=== PATIENT | female | born 1990 | race Asian ===

== ENCOUNTER 2024-06-15 11:39 | Inpatient (IN) ==
[2024-06-15] MEDS ORDERED: OXYTOCIN 30 UNITS/NSS 30 UNITS/500 ML BAG IV PRN ×2 (12:09→17:51)
[2024-06-15] MEDS ORDERED: LIDOCAINE 1% LOCAL 20 ML VIAL INFIL PRN (12:09)
[2024-06-15] MEDS ORDERED: SODIUM CHLORIDE 0.9% 50 ML IV PRN (12:15)
[2024-06-15] MEDS ORDERED: SODIUM CHLORIDE 0.9% 100 ML IV PRN (12:15)
[2024-06-15] MEDS: ACETAMINOPHEN 500 MG TAB PO PRN (12:45)
[2024-06-15] MEDS: SODIUM CHLORIDE 0.9% 1,000 ML IV SCH (12:50)
--- NOTE | 2024-06-15 12:54 | History & Physical Report ---
Date of Service June 15, 2024 Assessment & Plan (1) Previous delivery affecting : Plan: - Previous record of C section N/A. - H/O successful in 2nd . - She is explained of pros and cons of , Aniceto want to try . She is aware of possible risk like rupture of previous scar, need of emergency C- Section or emergency laparotomy. BG: B +ve GBS: Unknown status, PCN during labor Plan: Pitocin IOL per protocol explained and consent signed. Possible C section consent signed (2) Hx successful (vaginal after ), currently : Plan - As per 1. History of Present Illness Chief Complaint: Leakage of fluid since today morning. Primary Care Provider: NO PCP 33 years, , sweet lady at [id number] POG with pre labor leaking since this AM around 5 o'clock. Previous ANCs in [place], moved here few months back after joining [facility] in [facility]. P1: for prolonged labor( ? NPOL, NDOH) P2: Successful spontaneous , Induced for Obs Luna at 36-37 weeks. She was 2 cm while IOL was started then. 17-18 hours of labor post IOL per patient. Notes from previous CS/ unavailable. -Placenta migrated from low lying in anatomy scan to fundal location today. -Hx of PTL/PTD at 36 weeks Used progesterone until 17 wk, was told to stop in [place] d/t normal cervix at that time. Allergies Allergy/AdvReac Type Severity Reaction Status Date / Time No Known Allergies Allergy Verified 06/15/24 10:48 Home Medications Medication Instructions Recorded Confirmed Type calcium carbonate [Calcium 500] 1 tab PO DAILY PRN Heartburn 03/26/24 06/15/24 History ferrous sulfate PO 03/26/24 06/15/24 History folic acid PO DAILY 03/26/24 06/15/24 History Past Med/Surg History Problem List (Updated 06/15/24 @ 12:43 by Shauna Salvador MD) Hx successful (vaginal after ), currently H/O delivery, currently Previous delivery affecting Medical History delivery Chicken pox Varicella vaccination Migraines Surgical History (Updated 12/17/24 @ 12:43 by Shauna Salvador MD) S/P section Family History Denies family history of Ovarian cancer Breast cancer Colorectal cancer Social History Smoking Status: Never smoker Do You Dip or Chew Tobacco: No; Hx Alcohol Use: No Hx Substance Use: No Preferred Language: Somali Communication Ability: Effective Tar Boiler Required: No Beliefs That Will Affect Care: None marital status: marital status details: -Avinash Mcdonald 33) [phone] Current Living Situation: Family Current Living Situation Comment: Patient lives here with 2 children and in [place] currently. current occupational status: student current occupation: [employer] How many Children do You have: 2 other: Emergency contact in [email or web address]]: Cousin Feels Safe at Home: Yes Safety Concerns: Feels Safe At This Time Review of Systems Review of Systems: As per HPI Physical Exam Physical Exam: General: Alert and oriented. No acute distress CV: Regular rate and rhythm. No murmurs. Respiratory: CTA bilaterally. No rhonchi, wheezes, or crackles. No increased w ork of breathing. Abdomen: Gravid; Term size, nontender upon palpation, No scar tenderness noted Pelvic: Dilated 3 cm, 70% effaced and HS -[address] Segundo Lower extremities: No LE edema. No deep calf pain. Results & Data Results & Data Vital Signs (Past 12 Hours) Vital Signs Pulse BP 06/15/24 12:23 92 H 105/60 Supervising Physician Co-Signing Physician Notes Resident Physician Supervision Note: I interviewed and examined the patient. Discussed with Dr. Salvador and agree with findings and plan as documented in the note. Any exceptions or clarifications are listed here: 33yo @ 37 12/04, presented to L&D after clear fluid rupture of membranes at 5 this morning. Feeling mild ctx on arrival. History of for G1, reports this was a failure to progress in labor, then underwent successful . Both deliveries were in [place] - no records available. She is very motivated for vaginal delivery, and has been counseled extensively both in our office and today. She is aware of risk of uterine rupture, need for emergent , potential for further surgery including hysterectomy. Aware of risks of of baby/mother if uterine rupture. She is agreeable to section if absolutely necessary or in an emergency scenario, but otherwise if good progression of labor and reassuring maternal and status would like to attempt . I discussed with her that I think this is a reasonable plan, although I cannot completely quote accurate risk because we do not have her prior records from her section. We discussed and she signed consent and consent in case of emergency. 2u PRBC ordered for type/cross to have on standby if needed. She plans for an epidural. Will plan for pitocin for augmentation of her labor. She requested to eat during labor, I explained that this is not recommended because of breathing risks if the need for an emergency section arises. GBS swab collected today - since we will not have results prior to delivery, advised prophylaxis with penicillin - she agreed. Documented By: Sharri Segundo, Resident Activity Tracking Resident Involvement: Resident Care Provided Care Provided: OB Delivery
[2024-06-15] MEDS: PENICILLIN GK 6 MU in SODIUM CHLORIDE 0.9% 250 ML IV STA (12:55)
[2024-06-15] MEDS: OXYTOCIN 30 UNITS/NSS 30 UNITS/500 ML BAG IV PRN (13:00)
[2024-06-15 13:11] LABS: Hematocrit (blood only) 35.8 % (37.0-47.0); Mean Corpuscular Hemoglobin 28.3 pg (25.0-34.0); Mean Corpuscular Hgb Conc 33.5 g/dL (32.0-36.0); Mean Corpuscular Volume 84.4 fL (80.0-100.0); Mean Platelet Volume 11.4 fL (9.4-12.4); Platelet Count 193 K/uL (130-400); RDW Coefficient of Variation 12.3 % (11.5-14.5); Red Blood Count 4.24 M/uL (4.20-5.40); White Blood Count 8.94 K/ul (4.8-10.8)
--- NOTE | 2024-06-15 15:18 | Anesthesiology Consultation ---
Date of Service June 15, 2024 Assessment & Plan (1) Encounter for pre-operative examination: Chart Review Chart Review: Acceptable Risk for Labor Epidural History Height/Weight Height: 5 ft 7 in Weight: 58.967 kg Allergies Allergy/AdvReac Type Severity Reaction Status Date / Time No Known Allergies Allergy Verified 06/15/24 10:48 Medications Home Medications Medication Instructions Recorded Confirmed Last Taken calcium carbonate [Calcium 500] 1 tab PO DAILY PRN Heartburn 03/26/24 06/15/24 06/08/24 ferrous sulfate PO 03/26/24 06/15/24 Unknown folic acid PO DAILY 03/26/24 06/15/24 06/15/24 08:00 Active Medications Generic Name Dose Route Start Last Admin Trade Name Freq PRN Reason Stop Dose Admin Acetaminophen 1,000 mg 06/15/24 12:25 06/15/24 12:45 Acetaminophen 500 Mg Tab PO 07/15/24 12: 1,000 mg Q8H PRN Administration Pain Oxytocin 30 units in 500 mls @ 7 mls/hr 06/15/24 12:09 06/15/24 14:30 Pitocin 30 Units/Nss IV 06/17/24 12:08 0.42 units/hr .Q24H PRN 7 mls/hr Labor Induction/Augmentation Titration Protocol 0.42 UNITS/HR Sodium Chloride 1,000 mls @ 80 mls/hr 06/15/24 15:00 06/15/24 15:09 Nss IV 06/16/24 14:59 999 mls/hr .[id number] CHARLIE Titration Past Medical History Medical History (Updated 06/15/24 @ 15:17 by Carlos Alves MD) Hx successful (vaginal after ), currently delivery Chicken pox Varicella vaccination Migraines Past Family History Family History Denies family history of Ovarian cancer Breast cancer Colorectal cancer Past Surgical History Surgical History S/P section Social History Smoking Status: Never smoker Do You Dip or Chew Tobacco: No Hx Alcohol Use: No Hx Substance Use: No substance use type: does not use Physical Exam Vital Signs Last Vital Signs Temp 37.2 C 06/15/24 14:09 Pulse 72 06/15/24 14:09 Resp 16 06/15/24 14:09 BP 98/55 L 06/15/24 14:09 Testing Laboratory Results 06/15/24 12:40 Blood Type B Positive 06/15/24 12:40 Antibody Screen NEGATIVE 06/15/24 12:40
[2024-06-15] MEDS: LIDOCAINE 2%/EPINEPHRINE 1:200,000 20 ML PF ONE (15:40)
[2024-06-15] MEDS: fentaNYL citrate PF 100 MCG/2 ML VIAL ONE (15:40)
[2024-06-15] MEDS: BUPIVACAINE 0.25% PF 30 ML VIAL ONE (15:40)
[2024-06-15] MEDS: fentANYL 2 MCG/ML BUPIVacaine 0.125%-NSS 100ML BAG ONE (15:48)
[2024-06-15] MEDS ORDERED: NALOXONE HCL 0.4 MG/1 ML VIAL/CARP IV PRN (15:48)
[2024-06-15] MEDS ORDERED: fentANYL 2 MCG/ML BUPIVacaine 0.125%-NSS 100ML BAG EPI PRN (15:48)
[2024-06-15] MEDS ORDERED: NALOXONE HCL 1 MG in SODIUM CHLORIDE 0.9% 1,000 ML IV PRN (15:48)
[2024-06-15] MEDS ORDERED: ROPIVACAINE 0.5% PF 5 MG/ML 20 ML VIAL EPI PRN (15:48)
[2024-06-15] MEDS ORDERED: fentaNYL citrate PF 100 MCG/2 ML VIAL EPI PRN (15:48)
[2024-06-15] MEDS ORDERED: LIDOCAINE 2% MPF LOCAL 5 ML VIAL EPI PRN (15:48)
[2024-06-15] MEDS ORDERED: SODIUM CHLORIDE 0.9% PF INJ 10 ML VIAL EPI PRN (15:48)
[2024-06-15] MEDS ORDERED: ONDANSETRON INJ 2 MG/ML 2 ML VIAL IV PRN (15:48)
[2024-06-15] MEDS ORDERED: ePHEDrine sulfate 50 MG/ML AMP IV PRN (15:48)
[2024-06-15] MEDS ORDERED: BUPIVACAINE 0.25% PF 30 ML VIAL EPI PRN (15:48)
[2024-06-15] MEDS: SODIUM CHLORIDE 0.9% PF INJ 10 ML VIAL ONE (16:01)
[2024-06-15] MEDS: fentaNYL citrate PF 100 MCG/2 ML VIAL EPI STA (16:02)
[2024-06-15] MEDS: BUPIVACAINE 0.25% PF 30 ML VIAL EPI STA (16:02)
[2024-06-15] MEDS: SODIUM CHLORIDE 0.9% PF INJ 10 ML VIAL EPI STA (16:02)
[2024-06-15] MEDS: LIDOCAINE 2%/EPINEPHRINE 1:200,000 20 ML PF EPI STA (16:02)
[2024-06-15] MEDS: PENICILLIN GK 3 MU in DEXTROSE 5% 100 ML IV PRN (16:35)
--- NOTE | 2024-06-15 17:47 | Delivery Summary ---
Vaginal Delivery Summary Date of Service June 15, 2024 Vaginal Delivery Summary Vaginal Delivery Summary: Pre-delivery diagnoses: 33yo @ 37 6/7, h/o x 1, GBS unknown Post-delivery diagnoses: same Procedure: spontaneous vaginal after section () Surgeon: Sharri Segundo DO Complications: none Findings: Viable male . Apgars: 8/9 . Weight pending, please see nursery records Estimated QBL: 85cc Description of delivery: The patient progressed to complete with epidural anesthesia. She then began to push. She spontaneously vaginally delivered a viable from the cephalic presentation. The head delivered in NAZ position. The anterior shoulder delivered, followed by the posterior shoulder, followed by the body. The baby was placed on mother's abdomen and a spontaneous cry was heard. Delayed cord clamping was employed, and the cord was doubly clamped and cut. Cord blood was obtained. The placenta was delivered spontaneously intact with a 3-vessel cord. The uterus and vagina were swept of clots and debris. Previous scar palpated and noted to be intact. IV pitocin was given. The uterus became firm. The cervix, vagina, and perineum were inspected and no lacerations were noted. Excellent hemostasis was observed. The mother and baby are recovering in stable and good condition in the room. Sponge and instrument counts were correct x 2. Sharri Segundo DO [facility] Vaginal Delivery Charge Vaginal Delivery Codes: 30650 global code for the antepartum, delivery, and post- Delivery Type Details:
[2024-06-15] MEDS ORDERED: bisacodyL 10 MG SUPP PR PRN (17:51)
[2024-06-15] MEDS ORDERED: oxyCODONE/ACETAMINOPHEN 5mg/325mg TAB PO PRN (17:51)
[2024-06-15] MEDS ORDERED: BENZOCAINE 20% SPRY 85 APPLN/85 GM CAN EXT PRN (17:51)
[2024-06-15] MEDS ORDERED: HYDROCORTISONE ACETATE 25 MG SUPP PR PRN (17:51)
[2024-06-15] MEDS: DIPHTHER/TETAN/PERTUS Vaccine (Tdap, Adol/Adult) 0.5mL IM ONE (18:05)
[2024-06-15] MEDS: ePHEDrine sulfate 50 MG/ML AMP ONE (18:06)
--- NOTE | 2024-06-15 18:09 | Anesthesia Procedure Note ---
Date of Service June 15, 2024 Anesthesia Post Epidural Note Vital Signs Vital Signs: Temp Pulse Resp BP Pulse Ox 36.8 C 75 16 134/78 100 06/15/24 16:05 06/15/24 18:06 06/15/24 16:05 06/15/24 18:01 06/15/24 18:06 Notes Mental Status: alert / awake / arousable and participated in evaluation Nausea / Vomiting: adequately controlled Pain: adequately controlled Airway Patency, RR, SpO2: stable & adequate BP & HR: stable & adequate Hydration State: stable & adequate Neuraxial Anesthesia: was administered and sensory block is resolving Anesthetic Complications: no major complications apparent Epidural: Removed without complications and With tip intact
[2024-06-15 18:27] VITALS: O2SAT 99
[2024-06-15] MEDS: ACETAMINOPHEN 325 MG TAB PO PRN (19:48)
[2024-06-15] MEDS: DOCUSATE SODIUM 100 MG CAP PO SCH (21:08)
[2024-06-16 02:54] VITALS: RESP 18
[2024-06-16] MEDS: IBUPROFEN 600 MG TAB PO PRN (03:37)
--- NOTE | 2024-06-16 05:54 | Obstetrical Progress Note ---
Date of Service June 16, 2024 Assessment & Plan (1) (vaginal after ): Plan: Both mom and baby doing well. Discharge today; patient ready for discharge. Admission and Anticipated Discharge Date Admission Date: June 15, 2024 Supervising Physician Co-Signing Physician Notes Resident Physician Supervision Note: I interviewed and examined the patient. Discussed with Dr. Salvador and agree with findings and plan as documented in the note. Any exceptions or clarifications ar e listed here: PPD#1 doing well, anticipate DC home today per her wishes. Reviewed DC instructions, followup 6w in office. Documented By: Sharri Segundo, DO Subjective 1st PP Day following years at 37 week POG. No active complains Both mom and baby doing well. Pain: Mild, intermittent Lochia: Moderate Diet: Regular Ob diet Gas: Not aware of passing, but no abdominal distension Peeing: Normal, no bladder distension Ambulation: Normally Review of Systems Review of Systems: No SOB, chest pain, leg pain No dizziness, headache, palpitation No Blurring of vision , fever Physical Exam Physical Exam: General: Alert and oriented. No acute distress. CVS: S1 S2+ No murmurs, regular rhythm. Respiratory: CTA bilaterally. No rhonchi, wheezes, or crackles. No increased work of breathing. Abdomen: Bowel sound +. Soft, nontender Uterus: Fundus firm and palpable few cm below the umbilicus. Lower extremities: No LE edema. No deep calf pain. Results & Data Vital Signs (Past 12 Hours) Vital Signs Temp Pulse Pulse Resp BP BP Pulse Ox 06/16/24 03:40 36.7 C 80 18 110/71 99 06/15/24 23:15 36.8 C 66 18 96/63 L 99 06/15/24 20:20 36.8 C 71 20 95/61 L 99 06/15/24 19:45 36.8 C 16 06/15/24 19:45 85 06/15/24 19:45 97/53 L 06/15/24 19:15 83 06/15/24 19:15 103/59 L 06/15/24 18:45 85 06/15/24 18:45 106/76 06/15/24 18:36 99 06/15/24 18:36 90 06/15/24 18:31 99 06/15/24 18:31 92 H 06/15/24 18:30 92 H 06/15/24 18:30 116/78 06/15/24 18:26 99 06/15/24 18:26 93 H 06/15/24 18:21 100 06/15/24 18:21 89 06/15/24 18:16 100 06/15/24 18:16 83 06/15/24 18:15 85 06/15/24 18:15 122/71 06/15/24 18:11 100 06/15/24 18:11 78 06/15/24 18:06 100 06/15/24 18:06 75 06/15/24 18:01 100 06/15/24 18:01 85 06/15/24 18:01 134/78 06/15/24 17:56 100 06/15/24 17:56 87 O2 Del Method 06/16/24 03:40 Room Air 06/15/24 23:15 Room Air 06/15/24 20:20 Room Air 06/15/24 19:45 06/15/24 19:45 06/15/24 19:45 06/15/24 19:15 06/15/24 19:15 06/15/24 18:45 06/15/24 18:45 06/15/24 18:36 06/15/24 18:36 06/15/24 18:31 06/15/24 18:31 06/15/24 18:30 06/15/24 18:30 06/15/24 18:26 06/15/24 18:26 06/15/24 18:21 06/15/24 18:21 06/15/24 18:16 06/15/24 18:16 06/15/24 18:15 06/15/24 18:15 06/15/24 18:11 06/15/24 18:11 06/15/24 18:06 06/15/24 18:06 06/15/24 18:01 06/15/24 18:01 06/15/24 18:01 06/15/24 17:56 06/15/24 17:56 Resident Activity Tracking Resident Involvement: Resident Care Provided Care Provided: OB Delivery
[2024-06-16 06:52] LABS: Hematocrit (blood only) 38.4 % (37.0-47.0); Hemoglobin 12.7 g/dl (12.0-16.0)
[2024-06-16] MEDS: PRENATAL VITAMIN 1 TAB PO SCH (07:48)
[2024-06-16 15:24] VITALS: BP 101/65; PULSE 88; TEMP 98.8
[2024-06-16] MEDS ORDERED: bisacodyL 5 MG TABEC PO SCH (20:00)
== END 2024-06-16 18:50 | disposition home or self-care (01) | DRG 807 ==
LOC: OPB 11:39 → 4S1 11:42 → 4E2 20:18